=== PATIENT | female | born 1930 | race Caucasian/White ===

== ENCOUNTER → 2016-06-21 | Outpatient (CLI) | payer MEDICARE, OTHER | END | disposition home or self-care (01) | LOC: RAD 13:56 | DX: M51.36 Other intervertebral disc degeneration, lumbar region (principal); M15.0 Primary generalized (osteo)arthritis; M48.07 Spinal stenosis, lumbosacral region ==

== ENCOUNTER → 2016-10-31 | Outpatient (CLI) | payer MEDICARE, OTHER | END | disposition home or self-care (01) | LOC: US 02:45 | DX: N13.30 Unspecified hydronephrosis (principal); N32.89 Other specified disorders of bladder; N18.3 Chronic kidney disease, stage 3 (moderate) ==

== ENCOUNTER → 2016-12-02 | Outpatient (CLI) | payer MEDICARE, OTHER | END | disposition home or self-care (01) | LOC: RAD 13:14 | DX: N95.9 Unspecified menopausal and perimenopausal disorder (principal); M15.0 Primary generalized (osteo)arthritis; E83.50 Unspecified disorder of calcium metabolism; Z78.0 Asymptomatic menopausal state ==

== ENCOUNTER → 2017-04-11 | Outpatient (CLI) | payer MEDICARE, OTHER ==
[2017-04-11 11:17] LABS: BILIRUBIN NEGATIVE (NEGATIVE); BLOOD NEGATIVE (NEGATIVE); CLARITY CLEAR (CLEAR); COLOR YELLOW (YELLOW); GLUCOSE NEGATIVE (NEGATIVE); KETONE NEGATIVE (NEGATIVE); LEUKO ESTERASE NEGATIVE (NEGATIVE); NITRITE POSITIVE (NEGATIVE); SPECIFIC GRAVITY 1.015 (1.005-1.030); UROBILINOGEN 0.2 E.U./dl (0.2-1.0)
[2017-04-11 11:19] LABS: BASO # 0.1 10*3/uL (0.0-0.1); BASO % 0.7 % (0.0-1.0); EOS # 0.1 10*3/uL (0.0-0.4); EOS % 1.1 % (1.0-4.0); HEMATOCRIT 34.5 % (37.0-47.0); HEMOGLOBIN 10.9 g/dl (12.0-16.0); LYMPH # 1.8 10*3/uL (1.3-4.4); LYMPH % 21.4 % (27.0-41.0); MEAN CELL VOLUME 81.9 fl (81.0-99.0); MEAN CORPUSCULAR HGB 25.9 pg (27.0-31.0); MEAN CORPUSCULAR HGB CONC 31.6 g/dl (33.0-37.0); MEAN PLATELET VOLUME 10.4 fl (9.6-12.3); MONO # 1.1 10*3/uL (0.1-1.0); MONO % 13.4 % (3.0-9.0); NEUT # 5.2 10*3/uL (2.3-7.9); NEUT % 63.2 % (47.0-73.0); PLATELET COUNT AUTOMATED 243 10*3/uL (130-400); RED BLOOD COUNT 4.21 10*6/uL (4.10-5.10); RED CELL DISTRI WIDTH 17.7 % (0-14.5); WHITE BLOOD COUNT 8.3 10*3/uL (4.8-10.8)
[2017-04-11 11:28] LABS: BACTERIA 3+
[2017-04-11 12:00] LABS: ALBUMIN 3.2 gm/dl (3.1-4.5); CREATININE 1.48 mg/dL (0.55-1.02); PHOSPHOROUS 2.5 mg/dL (2.5-4.9); POTASSIUM 3.8 mmol/L (3.5-5.1)
[2017-04-11 14:36] LABS: PTH INTACT 129.6 pg/mL (14.0-72.0); VITAMIN D, 25-HYDROXY 24.1 ng/mL (30-100)
== END | disposition home or self-care (01) ==
LOC: LAB 10:48
PROVIDERS: Internal Medicine Nephrology
DX: N18.3 Chronic kidney disease, stage 3 (moderate) (principal)

== ENCOUNTER → 2018-02-21 | Outpatient (CLI) | payer MEDICARE, OTHER | END | disposition home or self-care (01) | LOC: MAMMO 02:15 | DX: Z12.31 Encounter for screening mammogram for malignant neoplasm of breast (principal); R92.1 Mammographic calcification found on diagnostic imaging of breast ==

== ENCOUNTER → 2018-04-30 | Outpatient (CLI) | payer MEDICARE, OTHER ==
[2018-04-30 14:11] LABS: BASO # 0.1 10*3/uL (0.0-0.1); BASO % 0.9 % (0.0-1.0); EOS # 0.2 10*3/uL (0.0-0.4); HEMATOCRIT 39.5 % (37.0-47.0); HEMOGLOBIN 12.4 g/dl (12.0-16.0); LYMPH # 1.9 10*3/uL (1.3-4.4); LYMPH % 23.7 % (27.0-41.0); MEAN CELL VOLUME 86.1 fl (81.0-99.0); MEAN CORPUSCULAR HGB CONC 31.4 g/dl (33.0-37.0); MEAN PLATELET VOLUME 10.8 fl (9.6-12.3); MONO # 1.1 10*3/uL (0.1-1.0); MONO % 13.3 % (3.0-9.0); NEUT # 4.7 10*3/uL (2.3-7.9); NEUT % 59.7 % (47.0-73.0); PLATELET COUNT AUTOMATED 223 10*3/uL (130-400); RED BLOOD COUNT 4.59 10*6/uL (4.10-5.10); RED CELL DISTRI WIDTH 17.2 % (0-14.5); WHITE BLOOD COUNT 7.9 10*3/uL (4.8-10.8)
[2018-04-30 14:12] LABS: BILIRUBIN NEGATIVE (NEGATIVE); BLOOD NEGATIVE (NEGATIVE); CLARITY CLEAR (CLEAR); COLOR YELLOW (YELLOW); GLUCOSE NEGATIVE (NEGATIVE); KETONE NEGATIVE (NEGATIVE); LEUKO ESTERASE TRACE (NEGATIVE); NITRITE NEGATIVE (NEGATIVE); SPECIFIC GRAVITY <= 1.005 (1.005-1.030); UROBILINOGEN 0.2 E.U./dl (0.2-1.0)
[2018-04-30 14:23] LABS: BACTERIA 1+; RBC 0-2 rbc/hpf (0-2)
[2018-04-30 14:34] LABS: ALBUMIN 3.1 gm/dl (3.1-4.5); CREATININE 1.16 mg/dL (0.55-1.02); PHOSPHOROUS 2.8 mg/dL (2.5-4.9); POTASSIUM 4.2 mmol/L (3.5-5.1)
[2018-04-30 15:00] LABS: PTH INTACT 142.2 pg/mL (18.5-88.0); VITAMIN D, 25-HYDROXY 26.5 ng/mL (30-100)
== END | disposition home or self-care (01) ==
LOC: LAB 13:39
PROVIDERS: Internal Medicine Nephrology
DX: N18.3 Chronic kidney disease, stage 3 (moderate) (principal); N25.81 Secondary hyperparathyroidism of renal origin

== ENCOUNTER 2019-12-28 10:21 | Emergency (ER) | payer MEDICARE, OTHER ==
[~2019-12-28] VITALS: Wt 67.1 kg
[2019-12-28 10:30] VITALS: BP 114/60
[2019-12-28 10:57] LABS: BASO % 0.5 % (0.0-1.0); EOS % 0.6 % (1.0-4.0); LYMPH # 1.1 10*3/uL (1.3-4.4); LYMPH % 17.1 % (27.0-41.0); MEAN CELL VOLUME 91.1 fl (81.0-99.0); MEAN CORPUSCULAR HGB 28.8 pg (27.0-31.0); MEAN CORPUSCULAR HGB CONC 31.6 g/dl (33.0-37.0); MEAN PLATELET VOLUME 10.2 fl (9.6-12.3); MONO # 0.8 10*3/uL (0.1-1.0); MONO % 11.7 % (3.0-9.0); NEUT # 4.5 10*3/uL (2.3-7.9); NEUT % 69.8 % (47.0-73.0); PLATELET COUNT AUTOMATED 254 10*3/uL (130-400); RED BLOOD COUNT 4.06 10*6/uL (4.10-5.10); RED CELL DISTRI WIDTH 15.3 % (0-14.5); WHITE BLOOD COUNT 6.5 10*3/uL (4.8-10.8)
[2019-12-28 11:10] LABS: CREATININE 1.47 mg/dL (0.55-1.02); POTASSIUM 3.6 mmol/L (3.5-5.1)
== END 2019-12-28 12:39 | disposition home or self-care (01) ==
LOC: ED 10:21
PROVIDERS: Physician Assistant
DX: S82.851A Displaced trimalleolar fracture of right lower leg, initial encounter for closed fracture (principal); X58.XXXA Exposure to other specified factors, initial encounter; Y93.89 Activity, other specified; Y92.89 Other specified places as the place of occurrence of the external cause; Y99.8 Other external cause status

== ENCOUNTER → 2020-01-03 | Outpatient (CLI) | payer MEDICARE, OTHER ==
[~2020-01-03] MED LIST: ATIVAN2 M1 PO; DYAZIDE 37.5-21 EACH PO; GLUCOPHAGE500 M1 PO; ISO D3 2,000 U1 EACH PO; LOSARTAN POTASS50 M1 PO; ZOCOR20 MG PO
== END | disposition home or self-care (01) ==
LOC: COVID19 02:26
PROVIDERS: ATTEND Podiatrist
DX: Z01.812 Encounter for preprocedural laboratory examination (principal); Z20.828 Contact with and (suspected) exposure to other viral communicable diseases

== ENCOUNTER → 2020-01-07 | Outpatient (CLI) | payer MEDICARE, OTHER ==
[~2020-01-07] MED LIST changes: +PHARMASSURE V500 MCG PO; +XARELTO10 MG PO
== END | disposition home or self-care (01) ==
LOC: US 12:07
PROVIDERS: ATTEND Podiatrist
DX: I70.221 Atherosclerosis of native arteries of extremities with rest pain, right leg (principal); S82.891A Other fracture of right lower leg, initial encounter for closed fracture

== ENCOUNTER 2020-02-05 07:11 | Inpatient (IN) | payer MEDICARE, OTHER ==
[~2020-02-05] VITALS: Ht 152.4 cm; Wt 49.9 kg
[2020-02-05 07:12] VITALS: BP 99/36
[2020-02-05 07:46] LABS: BASO % 0.6 % (0.0-1.0); EOS # 0.1 10*3/uL (0.0-0.4); EOS % 1.3 % (1.0-4.0); HEMATOCRIT 40.3 % (37.0-47.0); LYMPH # 1.1 10*3/uL (1.3-4.4); LYMPH % 15.1 % (27.0-41.0); MEAN CELL VOLUME 91.2 fl (81.0-99.0); MEAN CORPUSCULAR HGB 28.3 pg (27.0-31.0); MEAN PLATELET VOLUME 10.3 fl (9.6-12.3); MONO # 0.9 10*3/uL (0.1-1.0); MONO % 11.9 % (3.0-9.0); NEUT # 5.1 10*3/uL (2.3-7.9); NEUT % 70.7 % (47.0-73.0); PLATELET COUNT AUTOMATED 200 10*3/uL (130-400); RED BLOOD COUNT 4.42 10*6/uL (4.10-5.10); RED CELL DISTRI WIDTH 15.8 % (0-14.5); WHITE BLOOD COUNT 7.2 10*3/uL (4.8-10.8)
[2020-02-05 08:07] LABS: ALBUMIN 2.7 gm/dl (3.1-4.5); CREATININE 4.77 mg/dL (0.55-1.02); POTASSIUM 4.4 mmol/L (3.5-5.1); TOTAL PROTEIN 5.8 gm/dL (6.4-8.2)
[2020-02-05 10:20] VITALS: BP 110/60
[2020-02-05] MEDS ORDERED: Coumadin3 MG PO (10:56)
[2020-02-05 11:00] VITALS: BP 112/40
[2020-02-05] MEDS ORDERED: PREPARATION H C26 GM T (11:01)
[2020-02-05] MEDS ORDERED: PROVENTIL HFA6.7 GM INH (11:02)
[2020-02-05] MEDS ORDERED: VISTARIL50 MG PO (11:03)
[2020-02-05 11:51] LABS: INTERNATIONAL NORM RATIO 3.2 (2.0-3.5)
[2020-02-05 13:30] VITALS: BP 120/48
[2020-02-05 15:39] LABS: BILIRUBIN Negative (Negative); BLOOD Negative (Negative); CLARITY Clear (Clear); COLOR Yellow (Yellow); GLUCOSE Negative (Negative); KETONE Trace (Negative); LEUKO ESTERASE Trace (Negative); NITRITE Negative (Negative); SPECIFIC GRAVITY 1.015 (1.001-1.030); UROBILINOGEN 0.2 E.U./dl (0.0-1.0)
[2020-02-05 16:00] VITALS: BP 103/41
[2020-02-05 16:01] LABS: BACTERIA 1+; WBC 0-2 wbc/hpf (0-5)
[2020-02-05 17:48] LABS: ALBUMIN 2.5 gm/dl (3.1-4.5); CREATININE 4.09 mg/dL (0.55-1.02); POTASSIUM 4.3 mmol/L (3.5-5.1)
[2020-02-05 20:00] VITALS: BP 111/45
[2020-02-06] VITALS: BP 105/56
[2020-02-06 06:18] LABS: BASO % 0.3 % (0.0-1.0); EOS # 0.1 10*3/uL (0.0-0.4); EOS % 1.8 % (1.0-4.0); HEMATOCRIT 36.8 % (37.0-47.0); LYMPH % 16.7 % (27.0-41.0); MEAN CELL VOLUME 91.8 fl (81.0-99.0); MEAN CORPUSCULAR HGB 28.9 pg (27.0-31.0); MEAN CORPUSCULAR HGB CONC 31.5 g/dl (33.0-37.0); MEAN PLATELET VOLUME 10.5 fl (9.6-12.3); MONO # 0.7 10*3/uL (0.1-1.0); MONO % 12.1 % (3.0-9.0); NEUT # 4.2 10*3/uL (2.3-7.9); NEUT % 68.8 % (47.0-73.0); PLATELET COUNT AUTOMATED 200 10*3/uL (130-400); RED BLOOD COUNT 4.01 10*6/uL (4.10-5.10); RED CELL DISTRI WIDTH 15.9 % (0-14.5); WHITE BLOOD COUNT 6.1 10*3/uL (4.8-10.8)
[2020-02-06 06:25] LABS: INTERNATIONAL NORM RATIO 2.6 (2.0-3.5)
[2020-02-06 06:37] LABS: ALBUMIN 2.5 gm/dl (3.1-4.5); CREATININE 3.04 mg/dL (0.55-1.02); POTASSIUM 3.7 mmol/L (3.5-5.1); TOTAL PROTEIN 5.7 gm/dL (6.4-8.2)
[2020-02-06 08:00] VITALS: BP 111/57
[2020-02-06 12:00] VITALS: BP 121/50
[2020-02-06 16:00] VITALS: BP 119/50
[2020-02-06 20:00] VITALS: BP 122/56
[2020-02-07 06:27] LABS: POTASSIUM 3.8 mmol/L (3.5-5.1)
[2020-02-07 06:28] LABS: CREATININE 2.08 mg/dL (0.55-1.02)
[2020-02-07 07:45] LABS: INTERNATIONAL NORM RATIO 2.2 (2.0-3.5)
[2020-02-07 08:00] VITALS: BP 113/67
[2020-02-07 12:00] VITALS: BP 110/68
[2020-02-07 16:00] VITALS: BP 118/67
[2020-02-07 20:00] VITALS: BP 102/49
[2020-02-08] VITALS: BP 125/52
[2020-02-08 06:00] LABS: CREATININE 1.69 mg/dL (0.55-1.02); POTASSIUM 3.9 mmol/L (3.5-5.1)
[2020-02-08 08:00] VITALS: BP 109/46
[2020-02-08 12:00] VITALS: BP 119/38
[2020-02-08] MEDS ORDERED: VITAMIN D350 MC2 PO (14:27)
[2020-02-08] MEDS ORDERED: Humalog SQ (14:27)
[2020-02-08 16:00] VITALS: BP 112/45
== END 2020-02-08 17:47 | disposition home health service (06) | DRG 640 ==
LOC: ED 07:11 → EDHOLD 09:38 → 5E 09:38
PROVIDERS: Emergency Medicine; Internal Medicine; Registered Nurse; ADMIT Internal Medicine; ATTEND Internal Medicine
DX: E86.0 Dehydration (principal); N17.0 Acute kidney failure with tubular necrosis; E46 Unspecified protein-calorie malnutrition; I12.9 Hypertensive chronic kidney disease with stage 1 through stage 4 chronic kidney disease, or unspecified chronic kidney disease; E11.22 Type 2 diabetes mellitus with diabetic chronic kidney disease; E11.65 Type 2 diabetes mellitus with hyperglycemia; N18.32 Chronic kidney disease, stage 3b; F03.90 Unspecified dementia, unspecified severity, without behavioral disturbance, psychotic disturbance, mood disturbance, and anxiety; Z20.828 Contact with and (suspected) exposure to other viral communicable diseases; E78.5 Hyperlipidemia, unspecified; S09.90XA Unspecified injury of head, initial encounter; F32.9 Major depressive disorder, single episode, unspecified; F41.9 Anxiety disorder, unspecified; F43.20 Adjustment disorder, unspecified; E87.1 Hypo-osmolality and hyponatremia; E83.42 Hypomagnesemia; T79.6XXA Traumatic ischemia of muscle, initial encounter; W19.XXXA Unspecified fall, initial encounter; Y93.89 Activity, other specified; Y92.128 Other place in nursing home as the place of occurrence of the external cause; Y99.8 Other external cause status; Z79.899 Other long term (current) drug therapy; Z82.49 Family history of ischemic heart disease and other diseases of the circulatory system; Z79.84 Long term (current) use of oral hypoglycemic drugs; Z68.21 Body mass index [BMI] 21.0-21.9, adult

== ENCOUNTER 2020-02-08 14:02 | Inpatient (IN) | payer MEDICARE, OTHER ==
[~2020-02-08] VITALS: Ht 152.4 cm; Wt 49.9 kg
[~2020-02-08 14:02] MED LIST changes: +Coumadin3 MG PO; +PREPARATION H C26 GM T; +PROVENTIL HFA6.7 GM INH; +VISTARIL50 MG PO
[2020-02-08] MEDS ORDERED: VITAMIN D350 MC2 PO (14:27)
[2020-02-08] MEDS ORDERED: Humalog SQ (14:27)
[2020-02-08 17:59] VITALS: BP 90/40
[2020-02-08 20:25] VITALS: BP 112/61
[2020-02-09 06:18] VITALS: BP 101/84
[2020-02-09 07:11] LABS: ALBUMIN 2.4 gm/dl (3.1-4.5); CREATININE 1.64 mg/dL (0.55-1.02); POTASSIUM 3.7 mmol/L (3.5-5.1); TOTAL PROTEIN 5.6 gm/dL (6.4-8.2)
[2020-02-09 07:18] LABS: THYROID STIM HORMONE (HS) 1.27 uIU/ml (0.358-4.75)
[2020-02-09 07:57] LABS: VITAMIN D, 25-HYDROXY 70.9 ng/mL (30-100)
[2020-02-09 20:00] VITALS: BP 104/58
[2020-02-10 07:36] VITALS: BP 118/52
[2020-02-10 19:05] VITALS: BP 127/89
[2020-02-11 07:46] VITALS: BP 128/62
[2020-02-11 19:11] VITALS: BP 109/81
[2020-02-12 07:29] VITALS: BP 127/56
[2020-02-12 19:11] VITALS: BP 119/56
[2020-02-12 19:27] VITALS: BP 119/56
[2020-02-13 07:32] VITALS: BP 117/60
[2020-02-13 07:39] LABS: INTERNATIONAL NORM RATIO 1.5 (2.0-3.5)
[2020-02-13 19:49] VITALS: BP 126/66
[2020-02-14 07:15] LABS: INTERNATIONAL NORM RATIO 1.4 (2.0-3.5)
[2020-02-14 07:41] VITALS: BP 120/60
[2020-02-14] MEDS ORDERED: JANTOVEN4 M1 PO ×2 (09:23)
[2020-02-14] MEDS ORDERED: Coumadin3 MG PO ×2 (09:23)
[2020-02-14] MEDS ORDERED: RIVASTIGMINE1 EAC2 T (09:44)
[2020-02-14] MEDS ORDERED: DULOXETINE HCL30 MG PO (09:44)
[2020-02-14] MEDS ORDERED: MEMANTINE HCL10 MG PO (09:44)
== END 2020-02-14 11:00 | disposition other institution (70) | DRG 882 ==
LOC: 3N 14:02
PROVIDERS: Student in an Organized Health Care Education/Training Program; ADMIT Psychiatry & Neurology Psychiatry; ATTEND Psychiatry & Neurology Psychiatry
DX: F43.23 Adjustment disorder with mixed anxiety and depressed mood (principal); E43 Unspecified severe protein-calorie malnutrition; N18.30 Chronic kidney disease, stage 3 unspecified; E11.65 Type 2 diabetes mellitus with hyperglycemia; F03.91 Unspecified dementia, unspecified severity, with behavioral disturbance; Z66 Do not resuscitate; Z51.5 Encounter for palliative care; I12.9 Hypertensive chronic kidney disease with stage 1 through stage 4 chronic kidney disease, or unspecified chronic kidney disease; E11.22 Type 2 diabetes mellitus with diabetic chronic kidney disease; E78.5 Hyperlipidemia, unspecified; E55.9 Vitamin D deficiency, unspecified; D64.9 Anemia, unspecified; S82.851D Displaced trimalleolar fracture of right lower leg, subsequent encounter for closed fracture with routine healing; Z79.899 Other long term (current) drug therapy; Z82.49 Family history of ischemic heart disease and other diseases of the circulatory system; X58.XXXD Exposure to other specified factors, subsequent encounter; Z68.21 Body mass index [BMI] 21.0-21.9, adult; Z20.828 Contact with and (suspected) exposure to other viral communicable diseases

== ENCOUNTER 2020-02-19 07:54 | Emergency (ER) | payer MEDICARE, OTHER ==
[2020-02-19 07:54] VITALS: BP 116/41
[~2020-02-19 07:54] MED LIST changes: +DULOXETINE HCL30 MG PO; +Humalog SQ; +JANTOVEN4 M1 PO; +MEMANTINE HCL10 MG PO; +RIVASTIGMINE1 EAC2 T; +VITAMIN D350 MC2 PO
== END 2020-02-19 09:27 | disposition other institution (70) ==
LOC: ED 07:54
DX: Z04.3 Encounter for examination and observation following other accident (principal); Z79.899 Other long term (current) drug therapy; Z79.01 Long term (current) use of anticoagulants; W19.XXXA Unspecified fall, initial encounter; Y93.89 Activity, other specified; Y92.89 Other specified places as the place of occurrence of the external cause; Y99.8 Other external cause status

== ENCOUNTER 2020-04-12 17:46 | Emergency (ER) | payer MEDICARE, OTHER ==
[~2020-04-12] VITALS: Ht 152.4 cm; Wt 56.8 kg
[2020-04-12 18:22] VITALS: BP 101/39
[2020-04-12 18:42] LABS: ALBUMIN 2.3 gm/dl (3.1-4.5); CREATININE 2.66 mg/dL (0.55-1.02); POTASSIUM 3.8 mmol/L (3.5-5.1); TOTAL PROTEIN 5.6 gm/dL (6.4-8.2)
[2020-04-12] MEDS ORDERED: LOSARTAN POTASS50 M1 PO (18:42)
[2020-04-12] MEDS ORDERED: ATIVAN2 M1 PO (18:42)
[2020-04-12] MEDS ORDERED: VISTARIL25 MG PO (18:50)
== END 2020-04-12 21:00 ==
LOC: ED 17:46
PROVIDERS: Student in an Organized Health Care Education/Training Program
DX: N17.9 Acute kidney failure, unspecified (principal); E88.09 Other disorders of plasma-protein metabolism, not elsewhere classified; F03.90 Unspecified dementia, unspecified severity, without behavioral disturbance, psychotic disturbance, mood disturbance, and anxiety; I12.9 Hypertensive chronic kidney disease with stage 1 through stage 4 chronic kidney disease, or unspecified chronic kidney disease; E11.22 Type 2 diabetes mellitus with diabetic chronic kidney disease; N18.9 Chronic kidney disease, unspecified; Z79.899 Other long term (current) drug therapy; Z90.89 Acquired absence of other organs

== ENCOUNTER → 2020-04-29 | Day surgery (SDC) | payer MEDICARE, OTHER ==
[~2020-04-29] VITALS: Ht 152.4 cm; Wt 56.2 kg
[~2020-04-29] MED LIST changes: +ANTI MONKEY BU170 GM T; +ATIVAN1 MG PO; +DOXYCYCLINE100 M3 PO; +TYLENOL325 M3 PO; +ULTRAM50 MG PO; +VISTARIL25 MG PO
[2020-04-29 06:46] VITALS: BP 111/48
[2020-04-29 08:10] VITALS: BP 103/41
[2020-04-29 08:25] VITALS: BP 111/45
[2020-04-29 08:40] VITALS: BP 104/39
== END ==
LOC: SDC 04-24 08:00
PROVIDERS: ATTEND Podiatrist
DX: T84.84XA Pain due to internal orthopedic prosthetic devices, implants and grafts, initial encounter (principal); I12.9 Hypertensive chronic kidney disease with stage 1 through stage 4 chronic kidney disease, or unspecified chronic kidney disease; E11.22 Type 2 diabetes mellitus with diabetic chronic kidney disease; N18.9 Chronic kidney disease, unspecified; F41.9 Anxiety disorder, unspecified; F32.9 Major depressive disorder, single episode, unspecified; M19.90 Unspecified osteoarthritis, unspecified site; J44.9 Chronic obstructive pulmonary disease, unspecified; Y83.8 Other surgical procedures as the cause of abnormal reaction of the patient, or of later complication, without mention of misadventure at the time of the procedure

== ENCOUNTER 2020-05-03 15:57 | Emergency (ER) | payer MEDICARE, OTHER ==
[~2020-05-03] VITALS: Wt 65.8 kg
[~2020-05-03 15:57] MED LIST changes: -ANTI MONKEY BU170 GM T; -ATIVAN1 MG PO; -TYLENOL325 M3 PO
[2020-05-03 16:01] VITALS: BP 113/46
[2020-05-03 16:23] LABS: BASO % 0.4 % (0.0-1.0); EOS # 0.1 10*3/uL (0.0-0.4); EOS % 0.7 % (1.0-4.0); HEMATOCRIT 35.2 % (37.0-47.0); LYMPH # 0.9 10*3/uL (1.3-4.4); LYMPH % 8.2 % (27.0-41.0); MEAN CELL VOLUME 92.4 fl (81.0-99.0); MEAN CORPUSCULAR HGB 28.6 pg (27.0-31.0); MEAN PLATELET VOLUME 9.3 fl (9.6-12.3); MONO # 0.8 10*3/uL (0.1-1.0); MONO % 7.7 % (3.0-9.0); NEUT # 8.4 10*3/uL (2.3-7.9); NEUT % 81.4 % (47.0-73.0); PLATELET COUNT AUTOMATED 500 10*3/uL (130-400); RED BLOOD COUNT 3.81 10*6/uL (4.10-5.10); RED CELL DISTRI WIDTH 15.2 % (0-14.5); WHITE BLOOD COUNT 10.3 10*3/uL (4.8-10.8)
[2020-05-03 16:34] LABS: ACT PARTIAL THROMBO TIME 25.4 SECONDS (20.0-32.1); INTERNATIONAL NORM RATIO 1.1 (2.0-3.5)
[2020-05-03 16:39] LABS: ALBUMIN 1.7 gm/dl (3.1-4.5); ALKALINE PHOSPHATASE 151 U/L (45-117); BUN 30 mg/dl (7-24); CHLORIDE 104 mmol/L (98-107); LIPASE 142 U/L (73-393); SGOT/AST 15 IU/L (3-35); SGPT/ALT 10 U/L (12-78); SODIUM 138 mmol/L (136-145)
[2020-05-03 16:40] LABS: TROPONIN I < 0.015 ng/ml (<0.045)
[2020-05-03 17:04] LABS: CKMB < 1.0 ng/ml (0.5-3.6); CPK 33 U/L (26-192)
[2020-05-03 17:18] LABS: BILIRUBIN Negative (Negative); BLOOD Negative (Negative); CLARITY Clear (Clear); COLOR Yellow (Yellow); GLUCOSE Negative (Negative); KETONE Negative (Negative); LEUKO ESTERASE Negative (Negative); NITRITE Negative (Negative); PH 5.5 (4.5-8.0); SPECIFIC GRAVITY 1.015 (1.001-1.030); UROBILINOGEN 0.2 E.U./dl (0.0-1.0)
[2020-05-03 17:24] LABS: BACTERIA 1+; RBC 0-2 rbc/hpf (0-2); WBC 0-2 wbc/hpf (0-5)
[2020-05-03 17:25] LABS: EPITHELIAL CELLS 0-2
== END 2020-05-03 20:30 | disposition home or self-care (01) ==
LOC: ED 15:57
PROVIDERS: Physician Assistant
DX: M79.644 Pain in right finger(s) (principal); R41.0 Disorientation, unspecified; E11.22 Type 2 diabetes mellitus with diabetic chronic kidney disease; I12.9 Hypertensive chronic kidney disease with stage 1 through stage 4 chronic kidney disease, or unspecified chronic kidney disease; N18.9 Chronic kidney disease, unspecified; J44.9 Chronic obstructive pulmonary disease, unspecified; F41.9 Anxiety disorder, unspecified; M19.90 Unspecified osteoarthritis, unspecified site; F32.9 Major depressive disorder, single episode, unspecified; Z79.899 Other long term (current) drug therapy; Z79.2 Long term (current) use of antibiotics; W19.XXXA Unspecified fall, initial encounter; Y93.89 Activity, other specified; Y92.128 Other place in nursing home as the place of occurrence of the external cause; Y99.8 Other external cause status

== ENCOUNTER 2020-05-27 10:39 | Inpatient (IN) | payer MEDICARE, OTHER ==
[~2020-05-27] VITALS: Ht 152.4 cm; Wt 52.4 kg
[2020-05-27 10:59] VITALS: BP 110/60
[2020-05-27 11:20] LABS: BILIRUBIN Negative (Negative); BLOOD Negative (Negative); CLARITY Clear (Clear); COLOR Yellow (Yellow); GLUCOSE Negative (Negative); KETONE Trace (Negative); LEUKO ESTERASE 2+ (Negative); NITRITE Negative (Negative); UROBILINOGEN 0.2 E.U./dl (0.0-1.0)
[2020-05-27 11:44] LABS: ALBUMIN 1.9 gm/dl (3.1-4.5); CREATININE 2.26 mg/dL (0.55-1.02); POTASSIUM 3.7 mmol/L (3.5-5.1); TOTAL PROTEIN 5.1 gm/dL (6.4-8.2)
[2020-05-27 11:52] LABS: TROPONIN I 0.081 ng/ml (<0.045)
[2020-05-27 12:00] LABS: BASO # 0.1 10*3/uL (0.0-0.1); BASO % 0.7 % (0.0-1.0); EOS # 0.1 10*3/uL (0.0-0.4); EOS % 0.6 % (1.0-4.0); HEMATOCRIT 35.7 % (37.0-47.0); LYMPH % 11.6 % (27.0-41.0); MEAN CELL VOLUME 96.2 fl (81.0-99.0); MEAN CORPUSCULAR HGB 29.9 pg (27.0-31.0); MEAN CORPUSCULAR HGB CONC 31.1 g/dl (33.0-37.0); MONO # 0.7 10*3/uL (0.1-1.0); MONO % 7.9 % (3.0-9.0); NEUT # 7.1 10*3/uL (2.3-7.9); NEUT % 78.8 % (47.0-73.0); NUCLEATED RED BLOOD CELL 0.3 % (0.0-0.0); PLATELET COUNT AUTOMATED 226 10*3/uL (130-400); RED BLOOD COUNT 3.71 10*6/uL (4.10-5.10); RED CELL DISTRI WIDTH 16.3 % (0-14.5)
[2020-05-27 13:54] VITALS: BP 112/62
[2020-05-27 17:27] VITALS: BP 118/52
[2020-05-27 20:00] VITALS: BP 115/54
[2020-05-28] VITALS: BP 115/54
[2020-05-28] MEDS ORDERED: ATIVAN1 MG PO (00:19)
[2020-05-28] MEDS ORDERED: TYLENOL325 M3 PO (00:25)
[2020-05-28] MEDS ORDERED: ANTI MONKEY BU170 GM T (00:28)
[2020-05-28 06:43] LABS: BASO # 0.1 10*3/uL (0.0-0.1); BASO % 0.7 % (0.0-1.0); EOS # 0.2 10*3/uL (0.0-0.4); EOS % 2.7 % (1.0-4.0); HEMATOCRIT 34.1 % (37.0-47.0); LYMPH # 1.4 10*3/uL (1.3-4.4); LYMPH % 20.6 % (27.0-41.0); MEAN CELL VOLUME 93.7 fl (81.0-99.0); MEAN CORPUSCULAR HGB 28.8 pg (27.0-31.0); MEAN CORPUSCULAR HGB CONC 30.8 g/dl (33.0-37.0); MEAN PLATELET VOLUME 10.4 fl (9.6-12.3); MONO # 0.7 10*3/uL (0.1-1.0); NEUT # 4.4 10*3/uL (2.3-7.9); NEUT % 65.6 % (47.0-73.0); PLATELET COUNT AUTOMATED 199 10*3/uL (130-400); RED BLOOD COUNT 3.64 10*6/uL (4.10-5.10); RED CELL DISTRI WIDTH 16.4 % (0-14.5); WHITE BLOOD COUNT 6.7 10*3/uL (4.8-10.8)
[2020-05-28 07:13] LABS: ALBUMIN 1.9 gm/dl (3.1-4.5); CREATININE 1.6 mg/dL (0.55-1.02); POTASSIUM 3.3 mmol/L (3.5-5.1); TOTAL PROTEIN 4.9 gm/dL (6.4-8.2)
[2020-05-28 08:00] VITALS: BP 126/56
[2020-05-28 12:00] VITALS: BP 130/58
== END 2020-05-28 16:06 | DRG 682 ==
LOC: ED 10:39 → EDHOLD 13:30 → 5E 13:30
PROVIDERS: Emergency Medicine; Internal Medicine; ADMIT Internal Medicine; ATTEND Internal Medicine
DX: N17.0 Acute kidney failure with tubular necrosis (principal); E43 Unspecified severe protein-calorie malnutrition; F03.90 Unspecified dementia, unspecified severity, without behavioral disturbance, psychotic disturbance, mood disturbance, and anxiety; E11.65 Type 2 diabetes mellitus with hyperglycemia; F41.1 Generalized anxiety disorder; D64.9 Anemia, unspecified; E86.0 Dehydration; N18.32 Chronic kidney disease, stage 3b; R55 Syncope and collapse; I12.9 Hypertensive chronic kidney disease with stage 1 through stage 4 chronic kidney disease, or unspecified chronic kidney disease; E11.22 Type 2 diabetes mellitus with diabetic chronic kidney disease; E87.8 Other disorders of electrolyte and fluid balance, not elsewhere classified; Z68.22 Body mass index [BMI] 22.0-22.9, adult; Z20.822 Contact with and (suspected) exposure to COVID-19